=== PATIENT | female | born 1950 | race Caucasian/White ===

== ENCOUNTER 2021-08-01 07:42 | Outpatient (CLI) | payer MEDICARE, SELFPAY ==
--- NOTE | 2021-08-01 08:00 | USCV_ITS ---
Itzel Reece Age: 70 Gender: F : 1950 Exam Date: 08/01/2021 08:04 Ordering Phys: Elo Barrera MD ([email or web address]) Technologist: Neelima Ivy Exam Location: [facility] [place] Indication: DYSPNEA, CHEST PAIN BP: 120 / 80 HR: 78 Rhythm: Sinus Technical Quality: Adequate MEASUREMENTS (Male / Female) Normal Values 2D ECHO LV Diastolic Diameter PLAX 4.3 cm 4.2 - 5.9 / 3.9 - 5.3 cm LV Systolic Diameter PLAX 2.7 cm IVS Diastolic Thickness 1.2 cm 0.6 - 1.0 / 0.6 - 0.9 cm IVS Systolic Thickness 1.7 cm LVPW Diastolic Thickness 1.3 cm 0.6 - 1.0 / 0.6 - 0.9 cm LVPW Systolic Thickness 1.3 cm LVOT Diameter 2.0 cm LV Ejection Fraction 2D Teich 66.2 % LV Ejection Fraction MOD 2C 56.4 % LV Ejection Fraction 2C AL 58.1 % LA Diameter 2.6 cm LA Width 2.6 cm LA Height 4.0 cm RA Width 2.5 cm RA Height 3.9 cm Aorta at Sinotubular Diameter 2.6 cm M-MODE Aortic Annulus Diameter 2.3 cm LA Ao Ratio MM 1.1 MV E Point Septal Separation 0.5 cm DOPPLER AV Peak Velocity 139.0 cm/s LVOT Peak Velocity 97.0 cm/s AV Area Cont Eq vti 2.5 cm squared AV Area Cont Eq pk 2.2 cm squared MV Peak Velocity 119.0 cm/s MV Area PHT 3.0 cm squared Mitral E to A Ratio 0.6 MV E' Velocity 34.5 cm/s Mitral E to MV E' Ratio 13.6 Mitral E to LV E' Lateral Ratio 15.2 Mitral E to LV E' Septal Ratio 12.6 TR Peak Velocity 143.1 cm/s TR Peak Gradient 8.2 mmHg TR Mean Velocity 193.5 cm/s TR Mean Gradient 16.1 mmHg TR Velocity Time Integral 59.7 cm Right Atrial Pressure 3.0 mmHg Pulmonary Artery Systolic Pressu 11.2 mmHg PV Peak Velocity 94.0 cm/s RV Acceleration Time 0.1 s RV Ejection Time 0.2 s RV AcT/ET 0.3 FINDINGS Left Ventricle Normal left ventricular size and systolic function, EF 59 %. No regional wall motion abnormalities. Mild left ventricular hypertrophy. Grade I/IV diastolic dysfunction (abnormal relaxation filling pattern), normal to mildly elevated filling pressures. Right Ventricle The right ventricle is normal in size and function. Right Atrium The right atrium is normal in size. Left Atrium The left atrium is normal in size. Mitral Valve Mild mitral annular calcification. Thickened mitral valve. Trace mitral valve regurgitation. Aortic Valve Thickened aortic valve. Tricuspid Valve No gross abnormalities noted Pulmonic Valve No gross abnormalities noted Pericardium Normal pericardium without effusion. Aorta Normal ascending aorta dimension. CONCLUSIONS Normal left ventricular size and systolic function, EF 59 %. No regional wall motion abnormalities. Mild left ventricular hypertrophy. Grade I/IV diastolic dysfunction (abnormal relaxation filling pattern), normal to mildly elevated filling pressures. Thickened aortic and mitral valves. Mild mitral annular calcification. Trace mitral valve regurgitation. There is no pericardial effusion. There are no intracardiac masses. No previous study is available for comparison. Dr Elo Barrera MD FAC (Electronically Signed) Final Date: 03 August 2021 15:13 S
== END 2021-08-01 07:43 | disposition home or self-care (01) ==
LOC: US 07:44
PROVIDERS: PCP Student in an Organized Health Care Education/Training Program; Visit Provider Internal Medicine Cardiovascular Disease
DX: R06.00 Dyspnea, unspecified (principal); R07.9 Chest pain, unspecified; I08.0 Rheumatic disorders of both mitral and aortic valves
CPT/HCPCS: 93306